=== PATIENT | male | born 1950 | race Caucasian/White ===

== ENCOUNTER → 2022-08-21 09:07 | Outpatient (CLI) | payer MEDICARE, OTHER, SELFPAY ==
[2022-08-21 12:14] LABS: COVID19 -Nasal RAPID Negative (Negative)
== END ==
PROVIDERS: Family Provider Internal Medicine; PCP Internal Medicine; Visit Provider Surgery
DX: Z20.822 Contact with and (suspected) exposure to COVID-19 (principal); Z01.812 Encounter for preprocedural laboratory examination
CPT/HCPCS: 87635; C9803

== ENCOUNTER 2022-08-22 07:30 | Day surgery (SDC) | payer MEDICARE, OTHER, SELFPAY ==
[2022-08-22 08:07] VITALS: BP 122/78; PULSE 71; RESP 16; TEMP 36; O2SAT 98; BMI 27.2
[2022-08-22] MEDS: LACTATED RINGERS 1,000 ML 42 ML IV (08:20)
--- NOTE | 2022-08-22 09:10 | PM.HP.1 ---
History of Present Illness History of Present Illness Chief complaint: SCREENING COLONOSCOPY Narrative: Mr. Zavaleta presents today for a screening colonoscopy he denies blood in his stool diarrhea constipation. Has no family history of colon cancer. He has had a colonoscopy before was several years ago at the [facility] he does not really remember if he had polyps or anything like that. He had a good experience with the prep and he thinks the stool is relatively clear he has had no anesthetic issues in the past denies ever having chest pain shortness of breath. His primary care is at the [facility]. He has REGI, PTSD, anxiety and takes clonidine he has an allergy to Abilify which gives him parkinsonian symptoms. He no longer takes trazodone. The remainder of his medication list is correct. He did have a knee replacement under general anesthesia here at this hospital in April 2022 and it went well. Patient History Medical History (Updated 08/22/22 @ 09:12 by Ana Pang MD) PTSD (post-traumatic stress disorder) Vestibular disequilibrium involving left inner ear Surgical History (Updated 08/22/22 @ 08:01 by Brendon Jimenez RN) H/O hand surgery Hx of left knee surgery (~04/2022) Family & Social History Social History: household members spouse Tobacco & Substance use: Smoking Status Former smoker alcohol intake frequency holiday/special occasion Substance Use Type marijuana Meds Home Medications and Allergies Home Medications Medication Instructions Recorded Confirmed Type multivitamin (Multiple Vitamins 1 tab PO QDAY #0 tabs 08/13/16 08/22/22 History tablet) clonidine HCl 0.1 mg tablet 0.2 mg PO BEDTIME #180 tabs 09/17/21 08/22/22 Rx trazodone 100 mg tablet 150 mg PO BEDTIME PRN insomnia 09/17/21 08/22/22 Rx #135 tabs sodium,potassium,mag sulfates 17.5 See Rx Instructions PO .COMPLEX 07/18/22 Rx gram-3.13 gram-1.6 gram oral soln #354 mL (Suprep Bowel Prep Kit) melatonin See Rx Instructions .Route 08/22/22 08/22/22 History .COMPLEX PRN Sleep Allergies Allergy/AdvReac Type Severity Reaction Status Date / Time aripiprazole [ARIPIPRAZOLE] AdvReac Unknown Parkinsonian Verified 08/22/22 07:58 like symptoms Exam Vital Signs (past 8 hours): - 08/22/22 08:07 Temperature 96.8 F L Pulse Rate 71 Respiratory Rate 16 Blood Pressure 122/78 Pulse Oximetry 98 Oxygen Delivery Method Room Air Oxygen Delivery Method Room Air Const General: cooperative, healthy appearing and comfortable Resp Effort & Inspection: normal respiratory effort and able to speak in complete sentences Cardio Pulses: radial pulses present GI Inspection: normal to inspection Palpation: No tender Extrem General: normal to inspection Assessment & Plan Assessment and plan (1) Colon cancer screening: Status: Acute Plan I discussed the risks benefits and alternatives of screening colonoscopy patient understands and would like to proceed. Time Spent With Patient Critical Care time: I spent a total of [] minutes of critical care time on this patient's care today; this time is exclusive of procedural time.
[2022-08-22] MEDS: MIDAZOLAM 5 MG/5 ML VIAL 7 MG IV (09:50)
[2022-08-22] MEDS: fentaNYL 100 MCG/2 ML INJ 175 MCG IV (09:50)
[2022-08-22 10:12] VITALS: BP 124/83; PULSE 75; RESP 14; TEMP 36.4; O2SAT 93
--- NOTE | 2022-08-22 10:19 | PM.OP.1 ---
Procedure & Clinicians Same procedure as scheduled: Yes Operative Notes Findings: Procedure & Clinicians Study performed: Colonoscopy Same procedure as scheduled: Yes Indications: Screening Surgeon: Ana Pang Procedure Notes Procedure in detail: Patient was taken to the endoscopy suite and placed in left lateral decubitus position a time-out was performed.? A total of 7 mg of Versed and 175 mcg of fentanyl was used for conscious sedation.? A digital? rectal exam was performed no masses palpated no external hemorrhoids visualized.? The scope was inserted into the anus and advanced to the cecum photographs were taken of the appendiceal orifice.? The prep throughout the procedure was suboptimal with solid particulate matter clogging the scope suction device consistently.? Of withdrawal time was 25 minutes because of the need for suctioning.? There were multiple scattered diverticula throughout the colon concentrated and large in the sigmoid colon.? No polyps were seen.? Internal hemorrhoids were visualized.? Patient tolerated the procedure well and went in good condition to the postoperative care unit follow-up should be 5-10 years but I would lean towards 5 years due to the quality of prep. Post-procedure Recommendations: Colonoscopy in 5 years Disposition: PACU
[2022-08-22 10:21] VITALS: BP 124/83; PULSE 75; RESP 14; O2SAT 93
[2022-08-22 10:26] VITALS: BP 124/77; PULSE 88; RESP 16; TEMP 36.8; O2SAT 97
== END 2022-08-22 10:28 | disposition home or self-care (01) ==
PROVIDERS: Family Provider Internal Medicine; PCP Family Medicine; Referring Provider Surgery; Visit Provider Surgery
PROC: 0DJD8ZZ Inspection of Lower Intestinal Tract, Via Natural or Artificial Opening Endoscopic (ICD-10-PCS; CPT 45378; principal; 2022-08-22 08:45)
DX: Z12.11 Encounter for screening for malignant neoplasm of colon (principal); K57.30 Diverticulosis of large intestine without perforation or abscess without bleeding; K64.8 Other hemorrhoids
CPT/HCPCS: G0121; J2250; J3010

== ENCOUNTER 2024-01-27 12:40 | Day surgery (SDC) | payer MEDICARE, OTHER, SELFPAY ==
[2024-01-27] VITALS (7 sets, daily range): BP systolic 83–137; BP diastolic 58–86; PULSE 70–84; RESP 12–19; TEMP 36.3; O2SAT 90–97
--- NOTE | 2024-01-27 12:15 | PM.OP.COLON ---
Operative Date/Time/Diagnoses Date of procedure: 01/27/24 Pre-op diagnosis: See indication and findings Procedure & Clinicians Study performed: Colonoscopy Surgeon: Parul Tellez Procedure Notes Procedure in detail: After informed consent was obtained the patient was placed in left lateral decubitus position. The video colonoscope was placed into the rectum slowly advanced to the cecum. Preparation was good. On slow withdrawal mucosa was carefully examined. The scope was removed. The patient tolerated procedure well. Blood loss none Complications none Sedation mac Findings 1. Extensive sigmoid and left-sided diverticulosis 2. Otherwise negative colonoscopy to cecum Patient has now had 2 consecutive negative colonoscopies. I would suggest follow-up colonoscopy for his history of polyps in 7 years
[2024-01-27] MEDS: LACTATED RINGERS 1,000 ML 100 ML IV (13:12)
== END 2024-01-27 14:49 | disposition home or self-care (01) ==
PROVIDERS: Family Provider Internal Medicine; PCP Family Medicine; Referring Provider Internal Medicine Gastroenterology; Visit Provider Internal Medicine Gastroenterology
PROC: 0DJD8ZZ Inspection of Lower Intestinal Tract, Via Natural or Artificial Opening Endoscopic (ICD-10-PCS; CPT 45378; principal; 2024-01-27 14:00)
DX: Z12.11 Encounter for screening for malignant neoplasm of colon (principal); Z86.010 Personal history of colon polyps; K57.30 Diverticulosis of large intestine without perforation or abscess without bleeding
CPT/HCPCS: G0105; J2704